=== PATIENT | female | born 1985 | race Caucasian/White ===

== ENCOUNTER 2017-05-02 09:37 | Emergency (ER) | payer OTHER ==
[2017-05-02 09:46] VITALS: BP 148/90
--- OUTSIDE RECORDS SUMMARY | 2017-05-02 10:10 | XMS REPORT | Continuity of Care Document ---
:1985 Author Organization [facility] [place] [address] Care Team Providers Name Role Phone Unavailable Primary Care Provider Unavailable Source Comments This disclosure is being made pursuant to the [employer] program and maynot contain all information available regarding this patient.[facility] Active Allergies and Adverse Reactions Not on File Current Medications Be aware that medications may not be up to date as of this document. Alwaysverify current medications with the patient. Not on file Active Problems Not on file Social History Tobacco Use Types Packs/Day Years Used Date Never Assessed Plan of Care Health Maintenance Due Date Last Done Comments Retired-Pertussis Vaccine Adult 2003 Retired-Tetanus Vaccine Adult 2003 Pap Smear 2005 Retired-INFLUENZA VACCINE 07/13/2015 Results from Last 3 Months Not on file
[2017-05-02 10:28] LABS: Hematocrit 34.7 % (37.0-47.0); Hemoglobin 12.3 gm/dL (12.5-16.0); Mean Cell Volume 88.1 fl (78-100); Mean Corpuscular Hemoglobin 31.2 pg (27-31); Mean Corpuscular Hgb Conc 35.4 g/dl (32-36); Mean Platelet Volume 9.8 fl (6.0-9.5); Neutrophil # 5.7 K/mm3 (1.3-6.0); Neutrophil % 77.6 % (42-75.0); Platelet Count 156 K/mm3 (150-450); Red Blood Count 3.94 M/mm3 (4.2-5.4); Red Cell Distribution Width 13.3 % (11.5-14.0); White Blood Count 7.3 K/mm3 (4.0-10.5)
[2017-05-02 10:47] LABS: Albumin * 2.9 gm/dl (3.4-5.0); Anion Gap 12.2 mmol/L (6.8-13.8); BUN/Creatinine Ratio 12.5 (9.0-21.6); Bilirubin, Total 0.4 mg/dL (0.0-1.1); Ca. Corrected For Albumin 9.3 mg/dL (8.4-10.2); Calcium * 8.7 mg/dL (7.9-10.9); Carbon Dioxide 24.6 mmol/L (24-32.6); Magnesium 1.8 mg/dL (1.2-2.8); Potassium 3.8 mmol/L (3.4-4.6); Total Protein 6.4 gm/dL (6.2-8.2)
[2017-05-02 11:19] LABS: Urine Bilirubin Negative (NEGATIVE); Urine Blood Negative /ul (NEGATIVE); Urine Ketone Negative (NEGATIVE); Urine Nitrite Negative (NEGATIVE); Urine Protein 15 mg/dL (NEGATIVE); Urine Urobilinogen Normal (NORMAL)
[2017-05-02 11:27] LABS: Urine Appearance Slightly Cloudy; Urine Color Yellow; Urine RBC 0-5 /hpf (0-5)
[2017-05-02 11:28] LABS: Urine Bacteria 3+; Urine Mucus Moderate - 2+
--- NOTE | 2017-05-02 11:56 | ERNOTE ---
Abdominal HPI - General Chief Complaint: Abdominal Pain Time Seen by Provider: 05/02/17 09:55 Source: patient Exam Limitations: no limitations - Immun/Allergies/Home Medications Immunizatons: IMMUNIZATION HX Immunizations Up to Date Yes History of Influenza Vaccine Yes Allergies/Adverse Reactions: Allergies amoxicillin trihydrate [From Amoxil] Allergy (Unknown, Verified 05/02/17 09:46) Sulfa (Sulfonamide Antibiotics) [Sulfa(Sulfonamide Antibiotics)] Allergy ( Unknown, Verified 05/02/17 09:46) Home Medications: HOME MEDICATIONS Venlafaxine HCl [Effexor] 75 mg PO DAILY 10/14/15 [Last Taken Unknown] Nitrofurantoin/Nitrofuran Mac [Macrobid] 100 mg PO Q12H #14 capsule 05/02/17 [ Last Taken Unknown] - History of Present Illness Narrative: 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 Patient states that she previously had a very small umbilical hernia with her last . She believes the symptoms are somewhat similar to the last time. The pain is moderate in intensity. Timing: constant Quality: moderate Activities at Onset: none Associated Symptoms: Present: denies symptoms Prior Abdominal Problems: Present: similar symptoms - with her last and an umbilical hernia Review of Systems - Review of Systems Constitutional: Present: See HPI EYE: Present: no symptoms reported ENT: Present: no symptoms reported Respiratory: Present: no symptoms reported Cardiology: Present: no symptoms reported Gastrointestinal/Abdominal: Present: See HPI Genitourinary: Present: no symptoms reported Musculoskeletal: Present: no symptoms reported Skin: Present: no symptoms reported Neurological: Present: no symptoms reported Endocrine: Present: no symptoms reported Hematologic/Lymphatic: Present: no symptoms reported Psych: Present: no symptoms reported - Patient's Past Medical History Patient History - Medical: Other Patient History - Cardiac/Respiratory: Asthma Patient History - Cancer: No Hx of Cancer Patient History - Surgical Procedures: T & A Patient History - Other: None LMP (Calendar): 09/27/15 - Family History Mother Family History - Cardiac/Respiratory: Hypertension uncle et great grandpa Family History - Medical: Diabetes Type 2 - Social History Living Situations: spouse Abuse History: No History of abuse Psych History: Hx of Anxiety, Hx of Depression Smoking Status: Never smoker Have you smoked in the past 12 months: No Do you dip or chew tobacco: No Alcohol Use: none Drug Use: none - Immunizations Immunizations Up to Date: Yes History of Influenza Vaccine: Yes Physical Exam - Physical Exam General Appearance: Present: wd/wn, alert, moderate distress Eye Exam: Normal inspection: bilateral, PERRL: bilateral Ears, Nose, Throat: Present: normal ENT inspection, H, normal pharynx Neck: Present: normal inspection, nontender Respiratory: Present: no respiratory distress, normal breath sounds, no accessory muscle use, chest nontender, lungs clear Cardiovascular/Chest: Present: regular rate, rhythm, no murmur, normal peripheral pulses Gastrointestinal/Abdominal: Present: normal bowel sounds, nontender, nondistended, soft, no organomegaly Rectal Exam: Present: deferred Back Exam: Present: normal inspection, normal range of motion Extremity Exam: Present: normal inspection, non-tender, no edema, normal range of motion Neurological Exam: Present: alert, oriented, normal mood/affect Skin Exam: Present: normal color, warm/dry Lymphatic Exam: Present: no adenopathy Pelvic Exam: Present: deferred - she was not having any vaginal bleeding or vaginal discharge so pelvic exam was deferred at this point as all the pain was in the umbilical region. ED Progress - Results and Orders Patient's Lab Results:: I have reviewed the patient's lab results. - Vital Signs Patient's Vital Signs:: I have reviewed the patient's vital signs. Vital Signs: Vital Signs 05/02/17 09:42 Temperature 36.9 C Pulse Rate 96 Respiratory 14 Rate Blood Pressure 148/90 O2 Sat by Pulse 97 Oximetry - CT/Ultrasound CT/Ultrasound Narrative: OB ultrasound was reviewed by me. - Progress/Reassessment Chief Complaint: Abdominal Pain Plan - Plan Plan: I discussed the case with Dr. Segal's office as he is in surgery and patient has had these symptoms previously and was found to have gram-negative back area in the urine and was treated successfully with Macrobid. She will be restarted on the Macrobid for 7 days and she will call her OB for follow-up appointment within one week. Patient was pain-free at the time of discharge and was given a liter of normal saline here in the emergency department. Departure - Departure Clinical Impression: UTI (urinary tract infection) Qualifiers: Urinary tract infection type: acute cystitis Hematuria presence: without hematuria Qualified Code(s): N30.00 - Acute cystitis without hematuria Condition: Good Instructions: and Urinary Tract Infection Referrals: Ester Dodson MD [Primary Care Provider] - Prescriptions: Nitrofurantoin/Nitrofuran Mac [Macrobid] 100 mg PO Q12H #14 capsule
== END 2017-05-02 12:03 | disposition home or self-care (01) ==
LOC: ER 09:37
DX: O23.12 Infections of bladder in pregnancy, second trimester (principal); Z3A.21 21 weeks gestation of pregnancy

== ENCOUNTER 2017-08-27 15:15 | Inpatient (IN) | payer OTHER ==
[2017-08-27] MEDS ORDERED: OXYTOCIN/DEXTROSE 5%-WATER 30 UNITS/500 ML BAG IV ONE (15:26)
[2017-08-27] MEDS ORDERED: LIDOCAINE HCL 50 ML VIAL PERI PRN (15:26)
[2017-08-27] MEDS ORDERED: INSULIN REGULAR HUMAN REC 100 UNITS in NORMAL SALINE 100 ML IV PRN (15:26)
[2017-08-27] MEDS ORDERED: RINGER'S SOLUTION,LACTATED 1,000 ML IV ONE (15:26)
[2017-08-27] MEDS ORDERED: METOCLOPRAMIDE HCL 5 MG/ML VIAL IV PRN (15:28)
[2017-08-27] MEDS ORDERED: diphenhydrAMINE HCL 50 MG/ML VIAL IV ONE (15:28)
[2017-08-27] MEDS: DEXTROSE 5%-LACTATED RINGERS 1,000 ML IV PRN (16:03)
--- NOTE | 2017-08-27 19:16 | PN ---
Progess Note - Interim Narrative: 08/27/17 19:09 Patient tolerating contractions well. Denies headache or visual changes. Blood pressures 140s over 80s last 2 blood pressures 178/110, 160/87. Blood sugar 86 at 1800 Pitocin at 6 mu/min. FHT: 130 baseline, reassuring Contractions q 1-3 min Cervix: 4/60/-2, AROM-clear Impression: Intrauterine at 37-5/7 weeks induction of labor for gestational hypertension with severe features. Insulin-dependent gestational diabetes Plan: If Blood pressure still elevated we'll start on magnesium and antihypertensive medication
[2017-08-28 00:08] LABS: Urine Bilirubin Negative (NEGATIVE); Urine Blood 250 /ul (NEGATIVE); Urine Ketone Negative (NEGATIVE); Urine Nitrite Negative (NEGATIVE); Urine Protein Negative (NEGATIVE); Urine Urobilinogen Normal (NORMAL)
[2017-08-28] MEDS: DEXTROSE 5%-LACTATED RINGERS 1,000 ML IV PRN (00:08)
[2017-08-28 00:12] LABS: Urine Appearance Clear; Urine Color Yellow
[2017-08-28] MEDS ORDERED: oxyCODONE HCL/ACETAMINOPHEN 1 TAB TABLET PO PRN ×2 (01:58)
[2017-08-28] MEDS ORDERED: OXYTOCIN/DEXTROSE 5%-WATER 30 UNITS/500 ML BAG IV ONE (01:58)
[2017-08-28] MEDS ORDERED: SENNOSIDES 8.6 MG TABLET PO PRN (01:58)
[2017-08-28] MEDS ORDERED: BENZOCAINE/MENTHOL 81 SPRAY CAN TP PRN (01:58)
[2017-08-28] MEDS ORDERED: BISACODYL 10 MG SUPP.RECT RC PRN (01:58)
[2017-08-28] MEDS ORDERED: HYDROCORTISONE 30 APPL TUBE TP PRN (01:58)
[2017-08-28] MEDS ORDERED: GLYCERIN/WITCH HAZEL LEAF 40 APPL BOX TP PRN (01:58)
--- NOTE | 2017-08-28 02:02 | OR ---
Operative Report - Dictated Report Narrative: Spontaneous vaginal delivery of viable male at 0129 on 08/28/2017 with Apgars 8 and 9, weighing 3492 g in NICK position with tight nuchal cord 3. Cord clamping delayed approximately 1 minute Placenta delivered complete, intact, with three vessel cord Estimated blood loss: 100 mL Lacerations: None History for MU Definition: * The number of deliveries resulting in a live the patient experienced prior to current hospitalization * The previous delivery of live twins or any live multiple gestation is considered one live event. *If primagravida or nulliparous is documented select zero for the number of previous live births. Live Events: 2
[2017-08-28] MEDS ORDERED: DOCUSATE SODIUM 100 MG CAPSULE PO SCH (09:00)
[2017-08-28] MEDS: ASCORBIC ACID 500 MG TABLET PO SCH (09:21)
[2017-08-28] MEDS: FERROUS SULFATE 325 MG TABLET PO SCH (09:21)
[2017-08-28] MEDS: DOCUSATE SODIUM 100 MG CAPSULE PO SCH ×2 (09:22→22:11)
[2017-08-28] MEDS: VENLAFAXINE HCL 75 MG TABLET PO SCH (09:23)
[2017-08-28] MEDS: CRANBERRY 300 MG PO SCH (09:24)
[2017-08-28] MEDS: IBUPROFEN 800 MG TABLET PO PRN (13:33)
[2017-08-28] MEDS: PRENATAL VITS96/IRON FUM/FOLIC 1 TAB TABLET PO SCH (22:11)
[2017-08-29] MEDS: DOCUSATE SODIUM 100 MG CAPSULE PO SCH ×2 (08:53→21:57)
[2017-08-29] MEDS: ASCORBIC ACID 500 MG TABLET PO SCH (08:53)
[2017-08-29] MEDS: FERROUS SULFATE 325 MG TABLET PO SCH (08:53)
[2017-08-29] MEDS: VENLAFAXINE HCL 75 MG TABLET PO SCH (08:53)
[2017-08-29] MEDS: PRENATAL VITS96/IRON FUM/FOLIC 1 TAB TABLET PO SCH (08:53)
--- NOTE | 2017-08-29 09:25 | PN ---
Subjective - Date and Time Seen Date: 08/29/17 Time: 09:24 Objective - Vitals Vitals: Last Vital Signs Temp 36.4 C L 08/29/17 08:17 Pulse 86 08/29/17 08:17 Resp 16 08/29/17 08:17 BP 149/87 08/29/17 08:17 Pulse Ox 100 08/29/17 08:17 Patient denies complaints. Lochia wnl Abdomen - soft, nontender Uterus - firm, at umbilicus - 1 No calf tenderness Fasting blood sugar 70, 1 hour postprandial pending. Impression: day #1 - s/p spontaneous vaginal delivery. Insulin- dependent gestational diabetic-resolved. Gestational hypertension-stable. Plan: Continue routine care
[2017-08-29] MEDS: CRANBERRY 300 MG PO SCH (11:23)
[2017-08-29] MEDS: IBUPROFEN 800 MG TABLET PO PRN (14:55)
[2017-08-30] MEDS: DOCUSATE SODIUM 100 MG CAPSULE PO SCH (10:09)
[2017-08-30] MEDS: FERROUS SULFATE 325 MG TABLET PO SCH (10:10)
[2017-08-30] MEDS: ASCORBIC ACID 500 MG TABLET PO SCH (10:10)
[2017-08-30] MEDS: PRENATAL VITS96/IRON FUM/FOLIC 1 TAB TABLET PO SCH (10:11)
[2017-08-30] MEDS: IBUPROFEN 800 MG TABLET PO PRN (10:14)
--- NOTE | 2017-08-30 10:41 | PN ---
Subjective - Date and Time Seen Date: 08/30/17 Time: 10:34 Objective - Vitals Vitals: Last Vital Signs Temp 36.9 C 08/30/17 07:54 Pulse 77 08/30/17 07:54 Resp 18 08/30/17 07:54 BP 128/79 08/30/17 07:54 Pulse Ox 98 08/30/17 07:54 Patient denies complaints. Lochia wnl Abdomen - soft, nontender Uterus - firm, at umbilicus - 2 No calf tenderness FBS-97, one-hour postprandial-89 Impression: day #2 - s/p spontaneous vaginal delivery. Gestational diabetes-resolved. Gestational hypertension-stable. Plan: Routine discharge instructions. Preeclampsia precautions. Follow-up in 2 weeks for blood pressure check.
[2017-08-30 13:05] VITALS: BP 142/86
== END 2017-08-30 11:55 | disposition home or self-care (01) | DRG 775 ==
LOC: OB 15:15
PROVIDERS: ADMIT Obstetrics & Gynecology; ATTEND Obstetrics & Gynecology
PROC: 10E0XZZ Delivery of Products of Conception, External Approach (ICD-10-PCS; principal; 2017-08-28)
PROC: 10907ZC Drainage of Amniotic Fluid, Therapeutic from Products of Conception, Via Natural or Artificial Opening (ICD-10-PCS; 2017-08-28)
PROC: 3E0P7VZ Introduction of Hormone into Female Reproductive, Via Natural or Artificial Opening (ICD-10-PCS; 2017-08-28)
PROC: 4A1HXCZ Monitoring of Products of Conception, Cardiac Rate, External Approach (ICD-10-PCS; 2017-08-28)
DX: O13.4 Gestational [pregnancy-induced] hypertension without significant proteinuria, complicating childbirth (principal); O99.12 Other diseases of the blood and blood-forming organs and certain disorders involving the immune mechanism complicating childbirth; O24.424 Gestational diabetes mellitus in childbirth, insulin controlled; O69.1XX0 Labor and delivery complicated by cord around neck, with compression, not applicable or unspecified; D69.6 Thrombocytopenia, unspecified; Z3A.38 38 weeks gestation of pregnancy; Z37.0 Single live birth

== ENCOUNTER 2017-09-04 21:36 | Emergency (ER) | payer OTHER ==
[2017-09-04] MEDS ORDERED: diphenhydrAMINE HCL 50 MG/ML VIAL IM ONE (22:25)
[2017-09-04] MEDS ORDERED: METOCLOPRAMIDE HCL 5 MG/ML VIAL IM ONE (22:25)
[2017-09-04] MEDS ORDERED: diphenhydrAMINE HCL 50 MG/ML VIAL ONE ×2 (22:34→23:16)
[2017-09-04] MEDS ORDERED: METOCLOPRAMIDE HCL 5 MG/ML VIAL ONE ×2 (22:34→23:16)
--- NOTE | 2017-09-04 22:36 | ERNOTE ---
Medical Problem HPI - Narrative Date of Service: 09/04/17 - General Chief Complaint: General Assessment Time Seen by Provider: 09/04/17 21:39 Source: patient - Immun/Allergies/Home Medications Immunizations: IMMUNIZATION HX Immunizations Up to Date Yes History of Influenza Vaccine Yes Allergies/Adverse Reactions: Allergies amoxicillin trihydrate [From Amoxil] Allergy (Unknown, Verified 09/04/17 21:55) Sulfa (Sulfonamide Antibiotics) [Sulfa(Sulfonamide Antibiotics)] Allergy ( Unknown, Verified 09/04/17 21:55) Home Medications: HOME MEDICATIONS Venlafaxine HCl [Effexor] 75 mg PO DAILY 10/14/15 [Last Taken Unknown] Ascorbic Acid [Vitamin C] 500 mg PO DAILY 07/06/17 [Last Taken Unknown] Cranberry Fruit Extract [Cranberry] 300 mg PO DAILY 07/06/17 [Last Taken Unknown ] Docusate Sodium [Stool Softener] 300 mg PO DAILY 07/06/17 [Last Taken Unknown] Ferrous Sulfate 325 mg PO DAILY 07/06/17 [Last Taken Unknown] Vits96/Iron Fum/Folic [ S] 1 tab PO DAILY 07/06/17 [Last Taken Unknown] Ibuprofen [Motrin] 200 - 800 mg PO Q6H PRN #100 tab 08/30/17 [Last Taken 20:30 800 mg] - History of Present History Narrative: This is a 32-year-old female who is one week . The patient was induced due to hypertension of . The patient says that since delivery she has continued to have a dull aching throbbing headache throughout her entire head. Little bit of nausea no vomiting no new neurologic symptoms. Today she took her pressure was 165/105. She felt this was too high so she called her [facility]. He recommended that she come to the hospital. Here her blood pressure is 138/84. She says the headache is a little bit better. She does have a history of migraines but this does not feel like her typical migraines Review of Systems - Review of Systems Constitutional: Present: no symptoms reported EYE: Present: no symptoms reported ENT: Present: no symptoms reported Respiratory: Present: no symptoms reported Cardiology: Present: no symptoms reported Gastrointestinal/Abdominal: Present: no symptoms reported Genitourinary: Present: no symptoms reported Musculoskeletal: Present: no symptoms reported Skin: Present: no symptoms reported Neurological: Present: headache Endocrine: Present: no symptoms reported Hematologic/Lymphatic: Present: no symptoms reported Psych: Present: no symptoms reported - Patient's Past Medical History Patient History - Medical: Other Patient History - Cardiac/Respiratory: Other Patient History - Cancer: No Hx of Cancer Patient History - Surgical Procedures: T & A Patient History - Other: None LMP (Calendar): 11/12/16 - Family History Mother Family History - Cardiac/Respiratory: Hypertension uncle et great grandpa Family History - Medical: Diabetes Type 2 - Social History Living Situations: home Abuse History: No History of abuse Psych History: Hx of Anxiety, Hx of Depression, Current tx/ever been on anti- depressants or anti-anxiety meds Smoking Status: Never smoker Alcohol Use: none Drug Use: none - Immunizations Immunizations Up to Date: Yes History of Influenza Vaccine: Yes Physical Exam - Physical Exam General Appearance: Present: wd/wn, alert, no apparent distress Head Exam: Present: normal inspection, no evidence of injury Eye Exam: Normal inspection: bilateral Ears, Nose, Throat: Present: normal ENT inspection, normal pharynx Neck: Present: normal inspection, nontender Respiratory: Present: no respiratory distress, lungs clear Cardiovascular/Chest: Present: regular rate, rhythm, no murmur Gastrointestinal/Abdominal: Present: normal bowel sounds, nontender, nondistended, soft Extremity Exam: Present: normal inspection, non-tender, no edema Neurological Exam: Present: alert, oriented, normal mood/affect, no motor/ sensory deficits, other - patient is hyperreflexic but does not have clonus other neurological tests are normal Skin Exam: Present: normal color, warm/dry Lymphatic Exam: Present: no adenopathy ED Progress - Results and Orders Patient's Lab Results:: I have reviewed the patient's lab results. - Vital Signs Patient's Vital Signs:: I have reviewed the patient's vital signs. Vital Signs: Vital Signs 09/04/17 09/04/17 21:48 22:29 Temperature 36.1 C L Pulse Rate 75 Respiratory 18 Rate Blood Pressure 155/90 135/85 O2 Sat by Pulse 97 Oximetry - Progress/Reassessment Chief Complaint: General Assessment Progress:: Pain free at discharge Progress Note-Subjective: 09/04/17 23:55 Patient has no further headache. Feels like she can go home Departure Clinical Impression: Migraine - Departure Disposition: Home self-care Condition: Good Instructions: Migraine Headache, [id number] Additional Instructions: As we discussed her headache is likely a form of a migraine headache. The medicine we've given new seems to taking care of this. He may want to talk with her primary care doctor about medicines that he can take long-term to prevent this. Her blood tests do not show anything significantly abnormal. There is no sign of damage to her kidneys from the high blood pressure. You should call tomorrow to set up an appointment to see the [facility] doctor on . If you develop any new concerning symptoms return to the ER immediately Referrals: Ester Dodson MD [Primary Care Provider] -
[2017-09-04 22:58] LABS: Hematocrit 36.3 % (37.0-47.0); Hemoglobin 12.6 gm/dL (12.5-16.0); Mean Cell Volume 94.3 fl (78-100); Mean Corpuscular Hemoglobin 32.7 pg (27-31); Mean Corpuscular Hgb Conc 34.7 g/dl (32-36); Mean Platelet Volume 9.4 fl (6.0-9.5); Neutrophil % 53.8 % (42-75.0); Platelet Count 185 K/mm3 (150-450); Red Blood Count 3.85 M/mm3 (4.2-5.4); White Blood Count 5.6 K/mm3 (4.0-10.5)
[2017-09-04] MEDS ORDERED: diphenhydrAMINE HCL 50 MG/ML VIAL IV ONE (23:11)
[2017-09-04] MEDS ORDERED: NORMAL SALINE 1,000 ML IV PRN (23:11)
[2017-09-04] MEDS ORDERED: METOCLOPRAMIDE HCL 5 MG/ML VIAL IV ONE (23:11)
[2017-09-04 23:16] LABS: Urine Bilirubin Negative (NEGATIVE); Urine Blood 50 /ul (NEGATIVE); Urine Ketone Negative (NEGATIVE); Urine Nitrite Negative (NEGATIVE); Urine Protein Negative (NEGATIVE); Urine Specific Gravity >=1.030 SP.GR. (1.005-1.010); Urine Urobilinogen Normal (NORMAL)
[2017-09-04 23:20] LABS: Anion Gap 12.3 mmol/L (6.8-13.8); BUN/Creatinine Ratio 20.8 (9.0-21.6); Bilirubin, Total 0.3 mg/dL (0.0-1.1); Ca. Corrected For Albumin 9.3 mg/dL (8.4-10.2); Calcium * 8.8 mg/dL (7.9-10.9); Carbon Dioxide 26.3 mmol/L (24-32.6); Potassium 3.6 mmol/L (3.4-4.6); Total Protein 6.7 gm/dL (6.2-8.2)
[2017-09-04 23:25] LABS: Urine Appearance Clear; Urine Color Yellow; Urine RBC 0-5 /hpf (0-5)
[2017-09-04 23:26] LABS: Urine Amorphous Sediment Few - 1+ (NONE-FEW); Urine Bacteria TRACE; Urine Mucus Few - 1+
[2017-09-05 00:20] LABS: Random Urine Total Protein 21.4 mg/dL (0-12)
[2017-09-05 00:29] VITALS: BP 141/80
== END 2017-09-05 00:25 | disposition home or self-care (01) ==
LOC: ER 21:36
DX: G43.909 Migraine, unspecified, not intractable, without status migrainosus (principal); F41.9 Anxiety disorder, unspecified